=== PATIENT | female | born 1990 | race American Indian/Alaskan Native ===

== ENCOUNTER 2017-06-13 15:55 | Emergency (ER) | payer BC ==
[2017-06-13 16:03] VITALS: PULSE 88; RESP 16; O2SAT 100
[2017-06-13] MEDS ORDERED: Sodium Chloride 0.9% 1,000 ML IV ONE (16:17)
--- NOTE | 2017-06-13 16:24 | C.PDOC ---
History Of Present Illness 27 y/o female presents to the ED c/o chest pain within the midsternal that has been worsening for the last few days while eating. The patient denies fever , nausea, chills, dizziness, shortness of breathe, and vomiting. Time Seen by Provider: 06/13/17 16:02 Chief Complaint (Nursing): Chest Pain History Per: Patient History/Exam Limitations: no limitations Onset/Duration Of Symptoms: Days Current Symptoms Are (Timing): Still Present Past Medical History Reviewed: Historical Data, Nursing Documentation, Vital Signs Vital Signs: Last Vital Signs Temp 98.1 F 06/13/17 19:59 Pulse 88 06/13/17 19:59 Resp 16 06/13/17 19:59 BP 113/73 06/13/17 19:59 Pulse Ox 100 06/13/17 19:59 Surgical History: No Surg Hx Family History: States: No Known Family Hx - Social History Hx Alcohol Use: No Hx Substance Use: No - Immunization History Hx Tetanus Toxoid Vaccination: No Hx Influenza Vaccination: No Hx Pneumococcal Vaccination: No Review Of Systems Except As Marked, All Systems Reviewed And Found Negative. Constitutional: Negative for: Fever, Chills Cardiovascular: Positive for: Chest Pain. Negative for: Palpitations, Light Headedness Respiratory: Negative for: Shortness of Breath Gastrointestinal: Negative for: Nausea, Vomiting Physical Exam - Physical Exam Appears: Non-toxic, No Acute Distress Skin: Warm, Dry Head: Atraumatic, Normacephalic Oral Mucosa: Moist Neck: Supple Chest: Symmetrical, No Deformity, No Tenderness Cardiovascular: Rhythm Regular Respiratory: Normal Breath Sounds, No Rales, No Rhonchi, No Wheezing Gastrointestinal/Abdominal: Soft, Tenderness (mild epigastric), No Guarding, No Rebound Extremity: Normal ROM, Capillary Refill (<2sec.) Neurological/Psych: Oriented x3, Normal Speech, Normal Cognition Gait: Steady ED Course And Treatment - Laboratory Results Result Diagrams: 06/13/17 16:43 06/13/17 16:43 O2 Sat by Pulse Oximetry: 100 (RA) Progress Note: The patient received blood work, IV fluids, and UA. The patient was administered Protonix injection, and abdominal X-ray. Medical Decision Making Medical Decision Making: cp - r/o abdominal source, pe, anemia - labs imaging pending. suspect abdominal source of cp. labs imaging pending 730: lipse minimally elevated, <3x upper limit normal. offered observation in hospital pt declines. advise outpt f/u and return precautions. abd soft no ttp. able to take po Disposition - Disposition Referrals: [facility] [Outside] [facility] [Outside] [facility] [Outside] Joss Wilcox MD [Staff Provider] - Jose Luis Mckeon MD [Staff Provider] - Disposition: HOME/ ROUTINE Disposition Time: 19:35 Condition: STABLE Additional Instructions: please follow up with your doctor. return to er with worsening symptoms or concerns. Instructions: Chest Pain (ED), Acute Abdominal Pain (ED) Forms: [employer] (Kittitian) - Clinical Impression Clinical Impression: Chest pain, Abdominal pain - Scribe Statement The provider has reviewed the documentation as recorded by the Scribe Eloise Floyd All medical record entries made by the Scribe were at my direction and personally dictated by me. I have reviewed the chart and agree that the record accurately reflects my personal performance of the history, physical exam, medical decision making, and the department course for this patient. I have also personally directed, reviewed, and agree with the discharge instructions and disposition.
[2017-06-13 16:49] LABS: BASO % 0.5 % (0.0-2.0); EOS # 0.1 K/uL (0.0-0.7); EOS % 1.5 % (0.0-4.0); HEMATOCRIT 40.2 % (34.0-47.0); LYMPH # 2.4 K/uL (1.0-4.3); LYMPH % 44.8 % (20.0-40.0); MEAN CELL VOLUME 83.5 fL (81.0-99.0); MEAN CORPUSCULAR HEMOGLOBIN 27.2 pg (27.0-31.0); MEAN CORPUSCULAR HGB CONC 32.6 g/dL (33.0-37.0); MEAN PLATELET VOLUME 6.8 fL (7.2-11.7); MONO # 0.7 K/uL (0.0-0.8); MONO % 12.4 % (0.0-10.0); NRBC % 0.2 % (0.0-2.0); RED CELL DISTRIBUTION WIDTH 13.6 % (11.5-14.5); WHITE BLOOD COUNT 5.3 K/uL (4.8-10.8)
[2017-06-13 17:01] LABS: RBC URINE 1 /hpf (0-3); URINE BACTERIA RARE (<OCC); URINE BILIRUBIN NEGATIVE (NEGATIVE); URINE BLOOD NEGATIVE (NEGATIVE); URINE COLOR Yellow (YELLOW); URINE GLUCOSE (UA) NORMAL (Normal); URINE KETONE NEGATIVE (NEGATIVE); URINE LEUKOCYTE ESTERASE NEG Leu/uL (Negative); URINE PROTEIN NEGATIVE (NEGATIVE); URINE UROBILINOGEN NORMAL mg/dL (0.2-1.0)
[2017-06-13 17:01] LABS: CHLORIDE 106 mmol/L (98-107)
[2017-06-13 17:02] LABS: POTASSIUM 3.8 mmol/L (3.6-5.2); SODIUM 141 mmol/L (132-148)
[2017-06-13 17:04] LABS: ALB/GLOB RATIO 1.3 (1.0-2.1); ALKALINE PHOSPHATASE 63 U/L (38-126); AST/SGOT 34 U/L (14-36); BILIRUBIN,TOTAL 0.4 mg/dL (0.2-1.3); CARBON DIOXIDE 22 mmol/L (22-30); GFR AFRICAN-AMERICAN > 60; TOTAL PROTEIN 7.7 g/dL (6.3-8.3)
[2017-06-13 17:05] LABS: ALT/SGPT 42 U/L (9-52); BLOOD UREA NITROGEN 11 mg/dL (7-17); CALCIUM 8.8 mg/dl (8.6-10.4); GLUCOSE,RANDOM 91 mg/dL (65-105)
[2017-06-13] MEDS ORDERED: Sodium Chloride 0.9% 1,000 ML ONE (17:08)
--- NOTE | 2017-06-13 17:43 | RAD ---
PROCEDURE: CHEST RADIOGRAPH, 1 VIEW HISTORY: abd pain COMPARISON: None available. FINDINGS: LUNGS: Clear. PLEURA: No pneumothorax or pleural fluid seen. CARDIOVASCULAR: Normal. OSSEOUS STRUCTURES: No significant abnormalities. VISUALIZED UPPER ABDOMEN: Normal. OTHER FINDINGS: None. IMPRESSION: No active disease.
[2017-06-13] MEDS ORDERED: Iodixanol 320 MG/ML 100 ML BOTTLE IV ONE (18:50)
[2017-06-13 20:00] VITALS: BP 113/73; TEMP 98.1
--- NOTE | 2017-06-14 09:14 | CT ---
PROCEDURE: CT Abdomen and Pelvis with contrast HISTORY: epigastric pain COMPARISON: None. TECHNIQUE: Contrast dose: 100 mL Visipaque 320 Radiation dose: Total exam DLP = 357.61 mGy-cm. This CT exam was performed using one or more of the following dose reduction techniques: Automated exposure control, adjustment of the mA and/or kV according to patient size, and/or use of iterative reconstruction technique. FINDINGS: LOWER THORAX: Mild nonspecific elevation of right hemidiaphragm. LIVER: Unremarkable. No gross lesion or ductal dilatation. GALLBLADDER AND BILE DUCTS: Unremarkable. PANCREAS: Unremarkable. No gross lesion or ductal dilatation. SPLEEN: Unremarkable. ADRENALS: Unremarkable. No mass. KIDNEYS AND URETERS: Unremarkable. No hydronephrosis. No solid mass. VASCULATURE: Unremarkable. No aortic aneurysm. BOWEL: Unremarkable. No obstruction. No gross mural thickening. APPENDIX: Normal appendix. PERITONEUM: No ascites. Umbilical hernia containing only mesenteric fat. LYMPH NODES: Unremarkable. No enlarged lymph nodes. BLADDER: Nondistended REPRODUCTIVE: Uterus significant for irregular hypo intense region in the posterior uterus deforming the endometrium, approximately 2 cm diameter. Recommend correlation with transvaginal pelvic ultrasound. Possible submucosal uterine fibroid. Rule out endometrial pathology. Irregularly-shaped peripherally enhancing left ovarian cyst, 2.6 cm, consistent with ruptured or involuting follicular cyst. BONES: No acute fracture. OTHER FINDINGS: None. IMPRESSION: Ruptured or involuting left ovarian follicular cyst. Possible submucosal fibroid. Recommend correlation with transvaginal pelvic ultrasound examination. No acute abnormality identified. Preliminary interpretation of this examination was reported by [employer] at 7:17 p.m. on 06/13/2017. There is concurrence of this report with the preliminary interpretation.
--- NOTE | 2017-06-16 17:26 | CARD ---
APPROVED REPORT EKG Measurement Heart [id number] <Conclusion> Sinus rhythm with marked sinus arrhythmia Otherwise normal ECG
== END 2017-06-13 20:00 | disposition home or self-care (01) ==
LOC: C.ER 15:55
DX: R07.9 Chest pain, unspecified (principal); R10.13 Epigastric pain
CPT/HCPCS: 71010; 74177; 80053; 81001; 83690; 84703; 85025; 85378; 85610; 85730; 93005; 96361; 96374; 99285; C9113; J7040; Q9967